=== PATIENT | male | born 1995 | race Hispanic/Latino ===

== ENCOUNTER 2018-05-04 07:41 | Outpatient (CLI) | payer BC ==
--- NOTE | 2018-05-04 14:25 | CT ---
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 Atypical headache. Evaluate for vascular abnormali ty. COMPARISON: None. CORRELATION: Brain MRI from the [facility]. TECHNIQUE: A noncontrast head CT is performed from the skull base to the skull vertex. CT angiogram of the head is performed in the axial plane. Three-dimensional reformatted images are submitted for interpretat ion. FINDINGS: CT HEAD: Low-lying cerebellar tonsils, compatible with history of Chiari I malformation. No parench ymal hemorrhage. No extraaxial hematoma. No midline shift. The basilar cisterns are patent. Brain volume is age appropriate. No evidence of hydrocephalus. The calvarium is intact. Adequate aerati on of the sinuses and mastoid air cells. Post contrast head CT does not demonstrate any pathologic enhancement of the brain parenchyma. CT ANGIOGRAM: Distal cervical and intracranial internal carotid arteries have appropriate enhancemen t and luminal diameter. ANTERIOR CIRCULATION: Symmetric enhancement and luminal diameter of the A1 and M1 segments. The pro ximal A2 segments and the proximal MCA branches are unremarkable. There is no aneurysm in the anteri or circulation. There is no evidence of a vascular malformation. POSTERIOR CIRCULATION: The left vertebral artery is dominant. The right vertebral artery is markedl y diminutive. Both PICA artery origins appear to be unremarkable. The basilar artery, as well as th e left and right P1 segments have symmetric enhancement and luminal diameter. No aneurysm or occlusi on in the posterior circulation. IMPRESSION: Unremarkable CT angiogram of the [place]. There is no evidence of vascular malformation or aneurysm. POS: [facility]
== END 2018-05-04 07:42 | disposition home or self-care (01) ==
LOC: SCSCT 07:41
PROVIDERS: ATTEND Neurological Surgery
DX: G93.5 Compression of brain (principal)
CPT/HCPCS: 70496